=== PATIENT | male | born 1980 | race Caucasian/White ===

== ENCOUNTER 2024-09-18 18:59 | Emergency (ER) | payer BC ==
[2024-09-18 19:24] VITALS: RESP 18
[2024-09-18] MEDS: Acetaminophen-Codeine 300-30mg TAB PO STA (20:24)
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
[2024-09-18] MEDS: ACET/COD 300 MG/30 MG STARTER PACK TAB BTL PO STA (21:56)
[2024-09-18] MEDS: LIDOCAINE 4% PATCH TOPICAL ONE (21:57)
[2024-09-18 22:04] VITALS: BP 130/79; PULSE 75; TEMP 97.7
== END 2024-09-18 23:15 | disposition home or self-care (01) ==
LOC: EC 18:59
DX: S20.219A Contusion of unspecified front wall of thorax, initial encounter (principal); V89.2XXA Person injured in unspecified motor-vehicle accident, traffic, initial encounter
CPT/HCPCS: 71046; 99284